=== PATIENT | male | born 1930 | race African-American/Black ===

== ENCOUNTER 2020-06-27 10:55 | Emergency (ER) | payer MEDICARE, BC ==
[~2020-06-27] VITALS: Ht 175.3 cm; Wt 84.0 kg
[2020-06-27 12:00] VITALS: BP 148/80
[2020-06-27] MEDS ORDERED: KETOROLAC 60MG/2ML VIAL IM ONE (12:00)
== END 2020-06-27 12:16 | disposition home or self-care (01) ==
LOC: ER 10:55 → EDBD 10:55 → ER 12:16
DX: M79.601 Pain in right arm (principal); M54.10 Radiculopathy, site unspecified
CPT/HCPCS: 93005; 96372; 99283; J1885